=== PATIENT | female | born 1950 | race Caucasian/White ===

== ENCOUNTER 2017-04-27 20:36 | Emergency (ER) | payer OTHER ==
[~2017-04-27] VITALS: Ht 157.5 cm; Wt 86.0 kg
[~2017-04-27 20:36] MED LIST: BUSPIRONE HCL10 MG PO; CELEBREX200 MG PO; DAILY VALUE1 EACH PO; DILAUDID2 MG PO; FLEXERIL10 MG PO; FLONASE16 G1 BOTH NARES; FLUOXETINE HCL20 M1 PO; LIPITOR40 MG PO; NEURONTIN300 MG PO; ORACEA40 MG PO; SARAFEM20 M1 PO; VOLTAREN 1% GE100 GM TP; XANAX0.5 MG PO
[2017-04-27 21:56] LABS: BASOPHIL COUNT 0.1 K/uL (0-0.1); EOSINOPHIL (%) 2.3 % (0-5); EOSINOPHIL COUNT 0.2 K/uL (0-0.3); HEMATOCRIT 38.1 % (36.0-46.0); IMMATURE GRANULOCYTE (%) 0.4 % (0.0-0.7); INSTRUMENT ABS NEUTROPHIL CT 5.7 K/uL; LYMPHOCYTE COUNT 2.8 K/uL (1.0-2.8); MCH 20.6 PG (29.0-34.0); MCHC 30.7 G/DL (30.0-36.0); MONOCYTE (%) 7.5 % (3-12); MONOCYTE COUNT 0.7 K/uL (0-0.8); NEUTROPHIL (%) 59.6 % (45-76); NEUTROPHIL COUNT 5.7 K/uL (1.8-6.4); PLATELET COUNT 329 K/uL (156-360); RBC DIS.WIDTH-SD 36.6 % (39-53); RED BLOOD COUNT 5.69 M/uL (3.80-5.20); WHITE BLOOD COUNT 9.5 K/uL (4.1-10.2)
[2017-04-27 21:58] LABS: CHLORIDE 109 mEq/L (99-109); SODIUM 145 mEq/L (136-147)
[2017-04-27 22:00] LABS: GLUCOSE 127 mg/dL (70-99)
[2017-04-27 22:02] LABS: ANION GAP 13 MEQ/L (2-14)
[2017-04-27 22:04] LABS: GFR ESTIMATE (CALCULATED) > 59 mL/min/
[2017-04-27 22:05] LABS: UREA NITROGEN (BUN) 13 mg/dL (9-23)
[2017-04-27 22:30] VITALS: BP 100/51
== END 2017-04-27 22:53 | disposition home or self-care (01) ==
LOC: EME 20:36
PROVIDERS: Emergency Medicine
DX: R53.1 Weakness (principal); R47.81 Slurred speech; R41.3 Other amnesia; Z85.9 Personal history of malignant neoplasm, unspecified; M19.90 Unspecified osteoarthritis, unspecified site; F32.9 Major depressive disorder, single episode, unspecified; F41.9 Anxiety disorder, unspecified
CPT/HCPCS: 70450; 80048; 85025; 99281; 99284